=== PATIENT | male | born 1985 | race Caucasian/White ===

== ENCOUNTER → 2016-10-15 | Outpatient (CLI) | payer OTHER ==
[~2016-10-15] MED LIST: ALPR1TAB2 PO; CYCL10TA9 PO; DOCU-143 PO; HYDR60TA PO; LISI-556 PO; NAPR500T8 PO; OMEG500C PO
--- NOTE | 2016-10-15 17:11 | Diagnostic Imaging Report ---
INDICATION: Low back pain. COMPARISON: Comparison is made with a CT examination from March 19, 2015. FINDINGS: Alignment of the lumbar spine remains within normal limits and the vertebral body heights appear maintained. Disc spaces appear preserved. There is no evidence to suggest a pars defect. The visualized bones of the pelvis are unremarkable. IMPRESSION: Normal height and alignment of the lumbar spine. Dictated by: Dictated on workstation # [id number]
== END ==
LOC: RAD 16:30
PROVIDERS: ATTEND Family Medicine
DX: M54.5 Low back pain (principal)
CPT/HCPCS: 72100

== ENCOUNTER 2017-03-26 10:45 | Outpatient (RCR) | payer OTHER | END 2017-03-28 | disposition home or self-care (01) | PROVIDERS: ATTEND Family Medicine | DX: M54.2 Cervicalgia (principal); M54.5 Low back pain ==

== ENCOUNTER 2017-05-04 11:15 | Outpatient (RCR) | payer OTHER | END 2017-05-04 14:07 | disposition home or self-care (01) | PROVIDERS: ATTEND Family Medicine | DX: M54.2 Cervicalgia (principal); M54.5 Low back pain ==